=== PATIENT | female | born 1965 | race Caucasian/White ===

== ENCOUNTER 2019-06-13 16:45 | Emergency (ER) | payer BC ==
[~2019-06-13] VITALS: Ht 165.1 cm; Wt 59.1 kg
[~2019-06-13 16:45] MED LIST: FLAGYL500 MG PO; LEVAQUIN 5500 MG/TA1 PO; MULTIPLE VITAMI1 CAP PO; NORCO 325 MG-51 TAB PO
[2019-06-13 17:00] VITALS: BP 131/60; PULSE 74; TEMP 97.6
== END 2019-06-13 18:05 | disposition home or self-care (01) ==
LOC: COL.ER 16:45
DX: S90.32XA Contusion of left foot, initial encounter (principal); F17.210 Nicotine dependence, cigarettes, uncomplicated; W20.8XXA Other cause of strike by thrown, projected or falling object, initial encounter; Y92.009 Unspecified place in unspecified non-institutional (private) residence as the place of occurrence of the external cause

== ENCOUNTER 2019-07-04 04:07 | Emergency (ER) | payer BC ==
[~2019-07-04] VITALS: Ht 165.1 cm; Wt 59.1 kg
[2019-07-04 04:13] VITALS: BP 142/70; TEMP 97.4
[2019-07-04 06:55] LABS: COLLECTION METHOD CLEAN CATCH
[2019-07-04 07:08] LABS: MUCOUS Present /lpf; PH 5 (5-8); SQUAMOUS EPITHELIAL None Seen /hpf; URINE APPEARANCE Clear; URINE BACTERIA None Seen /hpf; URINE BILIRUBIN Negative (NEGATIVE); URINE BLOOD 2+ (NEGATIVE); URINE COLOR Yellow; URINE GLUCOSE Negative (NEGATIVE); URINE KETONE Negative (NEGATIVE); URINE LEUKOCYTE ESTERASE Negative (NEGATIVE); URINE NITRATE Negative (NEGATIVE); URINE PROTEIN(semi-quant) Negative (NEGATIVE); URINE UROBILINOGEN Negative (NEGATIVE)
[2019-07-04 08:00] VITALS: PULSE 69
== END 2019-07-04 08:00 | disposition home or self-care (01) ==
LOC: COL.ER 04:07
PROVIDERS: Emergency Medicine
DX: R10.2 Pelvic and perineal pain (principal)

== ENCOUNTER 2022-02-07 17:21 | Emergency (ER) | payer BC ==
[2022-02-07 17:45] VITALS: TEMP 98.4
[2022-02-07 18:52] VITALS: BP 142/73; PULSE 64
== END 2022-02-07 18:53 | disposition home or self-care (01) ==
LOC: COL.ER 17:21
DX: S61.300A Unspecified open wound of right index finger with damage to nail, initial encounter (principal); Z28.310 Unvaccinated for COVID-19; Z23 Encounter for immunization; W23.0XXA Caught, crushed, jammed, or pinched between moving objects, initial encounter